=== PATIENT | male | born 1980 | race Caucasian/White ===

== ENCOUNTER 2019-12-09 01:16 | Inpatient (IN) | payer SELFPAY ==
[2019-12-09] VITALS (8 sets, daily range): BP systolic 106–146; BP diastolic 71–90; PULSE 83–108; RESP 16–24; TEMP 36.3–37.2; O2SAT 94–99; BMI 26.6
--- NOTE | 2019-12-09 01:27 | PC.NURSE ---
Officer stated that he also when getting to patient, the the patient was standing in the room naked pouring a gallon of milk all over himself. stated that there was several different types of medication around the patient, he stated that only thing he seen for sure was advil and midol, but there was stuff all around the patient and wasn't sure what other types of medications was there.
--- NOTE | 2019-12-09 01:28 | ED_ITS ---
HPI - Psych General: Chief Complaint: Psychiatric Symptoms Stated Complaint: SI Time Seen by Provider: 12/09/19 01:22 Source: patient and police Mode of arrival: other (police) Limitations: no limitations History of Present Illness: HPI Narrative: 39-year-old male who is here with police after they were called to his residence. Patient was there with his and states that he had taken ibuprofens and Midol's at 1230 and is unsure how much. Please states he was acting bizarrely and had poured milk on himself and threatened to jump out of a third story window. Patient here is refusing to answer most my questions and appears to be intoxicated. Associated symptoms: Deny depression Review of Systems Const: Denies: fever(s), chills, body aches or change in appetite Eyes: Denies: blurry vision or eye discomfort ENMT: Denies: throat pain or dental pain Card: Denies: chest pain Resp: Denies: dyspnea GI: Denies: abdominal pain, nausea, vomiting or diarrhea : Denies: dysuria Musc: Denies: neck pain or back pain Skin/Breast: Denies: rash Neuro: Denies: headache(s) Psych: Reports: mood swings; Denies: depression Govind/Lymph: Denies: easy bruising All/Imm: Denies: urticaria Physical Exam Const: COMMON NORMALS: no acute distress, patient oriented x3 and healthy appearing HENMT: COMMON NORMALS: normocephalic and atraumatic HEAD & SCALP: n ormocephalic and atraumatic Eye: COMMON NORMALS: Equal, round and reactive pupils present and EOMs intact bilaterally PUPIL: Yes Equal, round and reactive pupils present Neck/C-Spine: COMMON NORMALS: full ROM and supple Chest: COMMONS NORMALS: normal inspection of the chest and normal palpation of entire chest wall Resp: COMMON NORMALS: normal respiratory effort, No retractions, No use of accessory muscles and clear to auscultation bilaterally AUSCULTATION: clear to auscultation bilaterally Cardio: COMMON NORMALS: regular rate, regular rhythm and No murmurs present (Cardio) RATE: regular rate RHYTHM: regular rhythm GI: COMMON NORMALS: Normal to inspection, nondistended, normoactive bowel sounds present, Soft to palpation, non-tender and no masses PALPATION: Yes Soft to palpation Extremity: COMMON NORMALS: normal to inspection and full ROM Neuro: COMMON NORMALS: patient oriented x3, moves all extremities and no focal motor deficits Psych: ATTITUDE: Yes bizarre MOOD & AFFECT: Yes depressed mood and Yes anxious Skin: COMMON NORMALS: no rashes or lesions noted and no wounds GENERAL SKIN EXAM: no rashes or lesions noted MDM - Psych MDM Narrative: Medical decision making narrative: 0242 I responded to the rapid response where return patient had eloped. Staff states that he got up and ran out. Police contacted at this point. 0500 patient's repeat Tylenol level here is negative. Patient's otherwise blood care is all normal and he is medically cleared. Patient is on a 96-hour hold I spoke to psychiatrist and will admit to the psychiatric unit. Lab Data: Labs: Lab Results 12/09/19 12/09/19 12/09/19 Range/Units 01:30 01:30 04:17 WBC 14.9 H (4.0-10.0) 10^3/ uL RBC 5.50 H (4.1-5.3) 10^6/u L Hgb 15.8 (11.7-16.6) g/dL Hct 49.1 (42.0-52.0) % MCV 89.3 (80-94) fL MCH 28.7 (28.0-34.0) pg MCHC 32.2 (30.0-36.0) g/dL RDW 12.4 (12.1-15.1) % Plt Count 385 (130-400) 10^3/c mm MPV 9.8 (7.4-10.4) fL Neut % (Auto) 70.6 % Lymph % (Auto) 18.5 % [place] % (Auto) 9.4 % Eos % (Auto) 0.7 % Baso % (Auto) 0.5 % Neut # (Auto) 10.53 H (1.8-7.7) 10^3/u L Lymph # (Auto) 2.8 (0.8-4.8) 10^3/u L [place] # (Auto) 1.4 H (0.2-0.9) 10^3/u L Eos # (Auto) 0.1 (0.0-0.8) 10^3/u L Baso # (Auto) 0.1 (0.0-0.1) 10^3/u L Nucleated RBC % (a uto) 0 % Nucleated RBCs # 0.0 /100WBC Sodium 144 (136-145) mmol/L Potassium 4.4 (3.5-5.1) mmol/L Chloride 104 (98-107) mmol/L Carbon Dioxide 27 (22-29) mmol/L Anion Gap 17.4 (5-19) BUN 17 (6-20) mg/dL Creatinine 1.1 (0.7-1.2) mg/dL GFR Calculation 73.8 L (90-130) mL/min Glucose 108 (65-115) mg/dL Calculated Osmolal ity 295 (285-295) mOsm/k g Calcium 9.6 (8.5-10.5) mg/dL Total Bilirubin 0.5 (0.15-1.2) mg/dL AST 32 (0-40) U/L ALT 22 (0-41) U/L Alkaline Phosphata se 73 (40-130) IU/L Total Protein 8.2 (6.6-8.7) g/dL Albumin 4.9 (3.5-5.2) g/dL Globulin 3.3 (1.3-4.6) g/dL Salicylates < 0.3 L (3-10) mg/dL Acetaminophen < 5.0 L < 5.0 L (10-30) ug/mL Ethyl Alcohol < 10 (0-10) mg/dL Discharge Plan Discharge Patient Disposition: Admitted As Inpatient Clinical Impression: Depression Qualifiers: Depression Type: unspecified Qualified Code(s): F32.9 - Major depressive diso rder, single episode, unspecified Condition: Stable Coding Level of Care Code ED Global Project Manager for g Fwd Exam Comprehensive
[2019-12-09 01:37] LABS: Basophils # 0.1 10^3/uL (0.0-0.1); Basophils % 0.5 %; Eosinophils # 0.1 10^3/uL (0.0-0.8); Eosinophils % 0.7 %; Hematocrit 49.1 % (42.0-52.0); Hemoglobin 15.8 g/dL (11.7-16.6); Lymphocytes # 2.8 10^3/uL (0.8-4.8); Lymphocytes % 18.5 %; Mean Corpuscular HGB Conc 32.2 g/dL (30.0-36.0); Mean Corpuscular Hemoglobin 28.7 pg (28.0-34.0); Mean Corpuscular Volume 89.3 fL (80-94); Mean Platelet Volume 9.8 fL (7.4-10.4); Monocytes # 1.4 10^3/uL (0.2-0.9); Monocytes % 9.4 %; Neutrophils # 10.53 10^3/uL (1.8-7.7); Neutrophils % 70.6 %; Nucleated Red Blood Cells % 0 %; Platelet Count 385 10^3/cmm (130-400); Red Cell Distribution Width 12.4 % (12.1-15.1); White Blood Count 14.9 10^3/uL (4.0-10.0)
--- NOTE | 2019-12-09 01:45 | PC.NURSE ---
PT DENIES ANY THOUGHTS OF SUICIDE TO THIS NURSE BUT HAS FLIGHT OF IDEAS. REPORTED BY PD THAT WHEN THEY ARRIVED PT WAS SITTING IN A WINDOW THREATENING TO JUMP. PT ALSO THEN TOOK 1 GALLON OF MILK AND WAS POURING IT OVER HIS BODY WHEN THE PD CAME INTO HIS HOUSE. PT CONT TO SAY DOSE NOT WANT TO HARM HIMSELF, BUT HE ALSO TOOK AN UNDETERMINED NUMBER OF MEDICATIONS PRIOR TO PD ARRIVING AT HOUSE.
[2019-12-09 02:04] LABS: Alanine Aminotransferase 22 U/L (0-41); Albumin Level 4.9 g/dL (3.5-5.2); Alkaline Phosphatase 73 IU/L (40-130); Anion Gap 17.4 (5-19); Aspartate Amino Transferase 32 U/L (0-40); Blood Urea Nitrogen 17 mg/dL (6-20); Calcium 9.6 mg/dL (8.5-10.5); Carbon Dioxide 27 mmol/L (22-29); Chloride 104 mmol/L (98-107); Globulin 3.3 g/dL (1.3-4.6); Glomerular Filtration Rate 73.8 mL/min (90-130); Glucose 108 mg/dL (65-115); Osmolality Calculated 295 mOsm/kg (285-295); Potassium 4.4 mmol/L (3.5-5.1); Sodium 144 mmol/L (136-145); Total Bilirubin 0.5 mg/dL (0.15-1.2); Total Protein 8.2 g/dL (6.6-8.7)
[2019-12-09 02:34] LABS: Acetaminophen < 5.0 ug/mL (10-30); Alcohol Level < 10 mg/dL (0-10); Salicylate < 0.3 mg/dL (3-10)
--- NOTE | 2019-12-09 02:41 | PC.NURSE ---
PT CAME OUT TO NURSES STATION AND WANTED TO LEAVE. PT WAS TOLD THAT HE COULD NOT LEAVE. PT WAS OFFERED FOOD AND WATER. PT REFUSED AT THIS TIME AND INSISTED THAT HE WAS LEAVING. PT TOOK OFF RUNNING THROUGH THE DOORS AND OUT OF THE HOSPITAL. PT WAS FOLLOWED OUT OF THE HOSPITAL BY TWO RN'S. PT WAS SEEN LEAVING THE HOSPITAL GROUNDS AND PD WAS NOTIFIED. PT WAS INITAL ADDRESSED BY TWO RN'S AND ENCOURAGED TO GO BACK INTO ROOM.
--- NOTE | 2019-12-09 02:54 | PC.NURSE ---
PT BROUGHT BACK TO ED BY PD. PT TAKEN TO ROOM. PD AT BEDSIDE.
[2019-12-09] MEDS: LORazepam 2 mg/mL INJ 1 mL IM (03:01)
[2019-12-09] MEDS: haloperidol inj 5 mg/mL INJ 1 mL IM (03:01)
[2019-12-09 04:51] LABS: Acetaminophen < 5.0 ug/mL (10-30)
--- NOTE | 2019-12-09 14:43 | P.HP_ITS ---
Providers/Chief Complaint Admitting Physician: Jason Bautista MD Chief Complaint: SI HPI NPU History of Present Illness Bob Yin is a 39 year old male who presented to the emergency room with first responders secondary to strange behavior at his house which involved him apparently being by window pouring milk on himself and some talk about jumping out the window. He was uncooperative in the emergency room and had to have a when necessary injection. He was admitted to the neuropsychiatric unit for definitive treatment of these issues. Today he presents reporting that he wants to go home and giving no clear indication of what had gone on at that window. He was in denial that he had any problems but then later said that sometimes his mind plays tricks on him. He Focusing on the discharging him and straying from the episode that occurred. He endorsed the possibility of benefiting from Haldol at night. Given that it helped him sleep which he said is a problem. We discussed Abilify and Haldol and the risks, benefits and alternatives to those medications and he understood and agreed to proceed with dose of Haldol at night. He denied any clear past issues like this one. Addit ionally of note, he had coughed incessantly during the interview spitting things up a couple of times. There had been a possible contact case in his community of Covid?19 so hospitalist consult was initiated to make sure that he was not a carrier as he was not displaying any fever or reporting other signs. Psychiatric history: Denied. Substance abuse history: He denies any significant cigarette, alcohol, marijuana or any other illicit drug use. Denies any history of drug rehabilitation or DUIs. Family history: He endorsed that his mom's side of the family might have some mental health issues. Endorsed that possibly his father side of the family had some addiction issues. He denied any suicide attempts or completions. Developmental history: He denied any issues with his mom's or delivery of him. He learned to walk and talk and met his developmental milestones on time. He reported that he did not have speech therapy, learning support muscles or respiratory education classes, but reported that due to the war in his country he was not really able to go to school. He then reported that when he came to [place], he ended up being put in the ninth grade. Developmental history: He reports his mother father were together when he was born. He reports that possibly his mother had Rh factor or something of that nature cause due to mismatch of his blood type in her blood type she was not able to have any other children for the most part until he had his sister Omayra who is his only sibling. He denies any emotional physical or sexual abuse in his childhood w hich she reported was rough secondary to the war but he does report some war atrocities but did not seem to want to talk about nightmares or anything like that. He went to the 11th grade in high school and dropped out. He did not get his GED but it appears that may have had more to do with language barrier than intelligence. He endorses being a heterosexual and is been to the same woman for almost 23 years. It is only marriage and he has 10 children 6 boys and 4 girls with one of his children the oldest boy having moved out and got the rest reportedly live in the home. He has never been in the , he endorses being a [employer]. 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 He lives in a house with his and 9 children. Legal history: He endorses being in prison multiple times along its time being 120 day shock sent ence. Medical history: Denied. Meds NPU Home Medications Medication Instructions Recorded Confirmed Last Taken Type No Known Home Medications 12/10/19 12/10/19 Unknown History Allergies Allergy/AdvReac Type Severity Reaction Status Date / Time No Known Allergies Allergy Verified 12/09/19 01:24 [facility] NPU PFSH: Medical History (Updated 12/10/19 @ 20:34 by Jason Bautista MD) GERD (gastroesophageal reflux disease) Surgical History (Updated 12/09/19 @ 16:09 by Trevor Kaye MD) H/O inguinal hernia repair Social History (Updated 12/09/19 @ 16:11 by Trevor Kaye MD) Smoking and tobacco status: never smoked Alcohol intake: never Substance/Drug Use: never Mental Status Exam MSE Comments: this is a well-nourished well-developed white male with adequate dress, grooming and eye contact. No abnormal movements except for mild psychomotor retardation; cooperative with exam in no acute distress. Speech was limited with significant/strong Ivorian accent in decreased rate and volume. Mood described as okay at that guarded. Thought process mostly organized. Thought content: Patient denies suicidal or homicidal ideation, but smirked when asked about what happened at the window with the milk, there were no delusions reported or noted, he denied any auditory or visual hallucinations. Attention and concentration were limited and memory is unreliable but none were formally tested. He is alert and oriented times person and place. Insight and judgment are impaired impulse control is impaired. Vitals/I&O/Wt Last Vital Signs Temp 97.6 F 12/09/19 05:52 Pulse 83 12/09/19 05:52 Resp 20 H 12/09/19 05:52 BP 106/71 12/09/19 05:52 Pulse Ox 99 12/09/19 05:52 Weight last 48 hrs Weight 86.455 kg Weight 81.647 kg Data NPU : 12/09/19 01:30 12/09/19 01:30 A&P Assessment and plan (1) Altered mental status: Status: Acute (2) Psychosis: Status: Acute (3) Depression: Status: Acute Qualifiers: Depression Type: unspecified Qualified Code(s): F32.9 - Major depressive disorder, single episode, unspecified (4) Suicidal behavior: Status: Acute Additional A&P Information This is a 39-year-old white male with no reported psychiatric history who presents after some bizarre behavior and reported suicidal threat with some mild language barrier reporting an openness to consider medication presenting on a 96 hour hold. 1. Continue current medication. Except: Start Haldol 5 mg by mouth daily at bedtime. 2. Encouraged individual, group and milieu therapy. 3. Continue every 15 minute checks for safety however he will need to be one-on-one and in isolation while the covid-19 evaluation is being done. 4. Will await response of hospitalist consult has already been done. 5. Limited toxicology report will await conversation with to get some collateral information on what may have led up to the situation. Involuntary Hold Information 96 Hour Hold: 96 Hour Involuntary Admission: Yes 96 Hour Hold Ending Date: 12/15/19 96 Hour Hold Ending Time: 12:01 Attestations NPU Medical Necessity Statement*: Inpatient hospitalization is medically necessary and the clinically appropriate intervention at this time. We will monitor medications and make changes as indicated. He will be in the hospital for over to minimize. We'll evaluate for safety for discharge given 96 hour hold. Likely length of stay 3-5 days. 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
--- NOTE | 2019-12-09 15:03 | XRR_ITS ---
PROCEDURE INFORMATION: Exam: XR Chest, 1 View Exam date and time: 12/09/2019 3:05 PM Age: 39 years old Clinical indication: Cough TECHNIQUE: Imaging protocol: XR of the chest Views: 1 view. COMPARISON: CR Chest 2 views* [id number] 12/26/2012 1:19 PM FINDINGS: Lungs: Unremarkable. No consolidation. Pleural space: Unremarkable. No pleural effusion. No pneumothorax. Heart/Mediastinum: Unremarkable. No cardiomegaly. Bones/joints: Unremarkable. Similar findings seen comparing to prior examination XR/XR chest 1V portable [id number] IMPRESSION: No acute findings.
[2019-12-09 15:30] LABS: SARS Covid-2 Antigen Negative (Negative)
--- NOTE | 2019-12-09 15:58 | PM.CONSULT ---
Providers/Reason For Consult Consulting Physican/Specialty*: Dr. Bautista, psychiatry service Reason for Consult*: Nausea vomiting and cough. Attending Physician: Jason Bautista MD History of Present Illness History of Present Illness Bob Yin is a 39 year old male was admitted yesterday with altered mental status. Apparently he took ibuprofen and Midol and was acting bizarre. He was brought to ER but then eloped and was brought back by police several hours later. Patient was placed on 96-hour hold and admitted to neuropsychiatric unit. He noted to vomit this morning as well as coughing and hospitalist team was consulted for further evaluation and treatment. During my evaluation this afternoon patient appears to be slightly confused and reports some mild posterior headache. He shows no meningeal signs. He reports that he has been working yesterday on his car outside. He denies any fever or chills he denies any specific complaints other than mentioned. Reports that his nausea and vomiting with breakfast only was going on for 15 years. Reports that he previously was prescribed different antireflux medications and recently ran out of Trainfox. He denies taking any analgesics although per 's report yesterday he did take ibuprofen and Midol. He denies taking any medications as he does not believe in them. When we discussed about further evaluation with EGD and lumbar puncture for CSF evaluation he refused. Reports that he got very mad yesterday as he tripped on the bicycle his kids left on the floor. He has 10 children and lives with his Maura. He denies using any illicit drugs or smoking. He denies drinking alcohol. He reports that Sikh men believing in God would never do it. He goes to taoism regularly with his family. I would like to mention that we have communicated in Ecuadorean language as patient does not speak Taiwanese well. I have tried calling patient's to obtain more information but phone number provided in records is not in service. Review of Systems Const: Denies: fever(s) or chills Eyes: Denies: change in vision ENMT: Denies: throat pain or change in hearing Card: Denies: chest pain, edema or lightheadedness Resp: Denies: dyspnea or productive cough GI: Reports: nausea, vomiting, heartburn and belching; Denies: abdominal pain, dysphagia, diarrhea, constipation, hematochezia or melena Musc: Denies: joint pain or joint swelling Skin/Breast: Denies: rash or erythema Neuro: Denies: headache(s) or weakness in extremities Psych: Denies: depression or suicidal ideation Endo: Denies: excessive sweating Govind/Lymph: Denies: easy bleeding or tender lymph nodes All/Imm: Denies: throat swelling Meds/Allergies Home Medications and Allergies Allergies Allergy/AdvReac Type Severity Reaction Status Date / Time No Known Allergies Allergy Verified 12/09/19 01:24 PFSH Acute PFSH: Medical History (Updated 12/09/19 @ 16:21 by Trevor Kaye MD) GERD (gastroesophageal reflux disease) Surgical History (Updated 12/09/19 @ 16:09 by Trevor Kaye MD) H/O inguinal hernia repair Social History (Updated 12/09/19 @ 16:11 by Trevor Kaye MD) Smoking and tobacco status: never smoked Alcohol intake: never Substance/Drug Use: never Vitals/I&O/Wt Last Vital Signs Temp 97.6 F 12/09/19 05:52 Pulse 83 12/09/19 05:52 Resp 24 H 12/09/19 06:00 BP 106/71 12/09/19 05:52 Pulse Ox 99 12/09/19 05:52 Weight last 48 hrs Weight 81.647 kg Physical Exam Const: COMMON NORMALS: no acute distress, patient oriented x3 and alert HENMT: COMMON NORMALS: normocephalic and atraumatic HEAD & SCALP: normocephalic and atraumatic Eye: COMMON NORMALS: EOMs intact bilaterally, conjunctivae normal and no scleral icterus CONJUNCTIVA: Yes conjunctivae normal Neck/C-Spine: COMMON NORMALS: no lymphadenopathy and no meningeal signs Lymph: LYMPHATIC: no lymphadenopathy noted Chest: COMMONS NORMALS: normal palpation of entire chest wall Resp: COMMON NORMALS: No use of accessory muscles and clear to auscultation bilaterally AUSCULTATION: clear to auscultation bilaterally Cardio: COMMON NORMALS: regular rate, regular rhythm and No murmurs present (Cardio) RATE: regular rate RHYTHM: regular rhythm OTHER: No lower extremity edema GI: COMMON NORMALS: Soft to palpation and non-tender PALPATION: Yes Soft to palpation RECTAL EXAM: Yes deferred : COMMON NORMALS: Yes no CVA tenderness BLADDER/KIDNEY EXAM: Yes no CVA tenderness Back/Pelvis: COMMON NORMALS: no CVA tenderness and thoracic and lumbar spine normal to inspection Extremity: COMMON NORMALS: normal to inspection and capillary refill normal Neuro: COMMON NORMALS: patient oriented x3 and no focal motor deficits SENSORIUM/ORIENTATION: Yes alert MENINGEAL SIGNS: Yes no meningeal signs Psych: COMMON NORMALS: mental status grossly normal (Initially acted somewhat bizarre but more we talked better he got.), cooperative, denies homicidal ideation and denies suicidal ideation Skin: COMMON NORMALS: no rashes or lesions noted GENERAL SKIN EXAM: no rashes or lesions noted A&P Assessment and plan (1) Altered mental status: Highly suspected to be heat exhaustion versus illicit drug use. Status: Acute (2) GERD (gastroesophageal reflux disease): With suspected NSAID induced gastritis as cause of patient's nausea and vomiting Status: Acute (3) Depression: Status: Acute Qualifiers: Depression Type: unspecified Qualified Code(s): F32.9 - Major depressive disorder, single episode, unspecified (4) Dehydration: Status: Acute (5) Headache: Meningitis felt unlikely although aseptic meningitis second to ibuprofen is still a possibility. Bacterial infection felt highly unlikely. Patient refuses CSF analysis. Status: Acute Additional A&P Information Patient is [facility] that recently had severely ill patient with COVID-19 positive therefore patient had COVID-19 checked which was negative. His chest x-ray without any acute cardiopulmonary findings per my interpretation. Currently waiting for official report. Discussed with Dr. Bautista and we will give patient 1 L of half-normal saline. I encouraged patient to eat and drink fluids. We will try to contact patient's to discuss. Start patient on high-dose Protonix and avoid any NSAIDs. Awaiting urine drug screen. Consult Attestations Medical Necessity Statement: Patient with altered mental status requires close inpatient monitoring and treatment. I expect patient will require less than two midnights. Time Spent in Patient Care: Greater than 35 minutes (>than 50% of time spent in counselling and/or direct pt care on unit). 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
--- NOTE | 2019-12-09 21:03 | PC.NURSE ---
PT REFUSED SCHEDULED HALDOL. PT STATES HE DOES NOT BELIEVE IN MEDICATIONS AND WILL NOT BE TAKING THEM.
[2019-12-10 06:00] VITALS: BP 136/88; PULSE 86; RESP 20; TEMP 37.2; O2SAT 96
[2019-12-10] MEDS: pantoprazole DR 40 mg Tablet PO ×2 (07:43→18:08)
[2019-12-10] MEDS: nicotine 2 mg Gum BUCCAL ×6 (07:43→19:23)
[2019-12-10] MEDS: acetaminophen 325 mg Tablet 650 MG PO ×2 (07:44→12:32)
--- NOTE | 2019-12-10 13:47 | P.PN_ITS ---
Subjective Subjective: Interval history: Patient continues to be somewhat bizarre but overall better than yesterday. Refused having any more blood work. Reports good oral intake and appetite. He knows where he is and wants to go home. We were unable to get urine drug screen. mentioned that the patient was depressed. Primary psychiatric condition cannot be ruled out. Patient denies h eadache this afternoon. Denies shortness of breath or chest pain. Denies abdominal pain. Vitals/I&O/Wt Last Vital Signs Temp 98.9 F 12/10/19 06:00 Pulse 86 12/10/19 06:00 Resp 20 H 12/10/19 06:00 BP 136/88 12/10/19 06:00 Pulse Ox 96 12/10/19 06:00 Weight last 48 hrs Weight 86.455 kg Weight 81.647 kg Physical Exam Const: COMMON NORMALS: no acute distress and patient oriented x3 Resp: COMMON NORMALS: normal respiratory effort and clear to auscultation bilaterally AUSCULTATION: clear to auscultation bilaterally Cardio: COMMON NORMALS: regular rate, regular rhythm and S2 normal heart sound present RATE: regular rate RHYTHM: regular rhythm HEART SOUNDS: S2 normal heart sound present OTHER: No lower extremity edema GI: COMMON NORMALS: Normal to inspection, nondistended, normoactive bowel sounds present, Soft to palpation and non-tender PALPATION: Yes Soft to palpation Neuro: COMMON NORMALS: patient oriented x3 and no focal motor deficits Data : 12/09/19 01:30 12/09/19 01:30 A&P Assessment and plan (1) Altered mental status: Highly suspected to be heat exhaustion versus illicit drug use. Status: Acute (2) GERD (gastroesophageal reflux disease): With suspected NSAID induced gastritis as cause of patient's nausea and vomiting Status: Acute (3) Depression: Status: Acute Qualifiers: Depression Type: unspecified Qualified Code(s): F32.9 - Major depressive disorder, single episode, unspecified (4) Dehydration: Status: Acute (5) Headache: Meningitis felt unlikely although aseptic meningitis second to ibuprofen is still a possibility. Bacterial infection felt highly unlikely. Patient refuses CSF analysis. Status: Acute Additional A&P Information Encouraged oral intake. Psychiatric management as per Dr. Bautista. 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
[2019-12-10 14:00] VITALS: BP 130/85; PULSE 84; RESP 20; TEMP 36.8; O2SAT 96
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
[2019-12-10] MEDS: haloperidol 5 mg Tablet PO (20:15)
[2019-12-10] MEDS: trazodone 50 mg Tablet PO (20:15)
[2019-12-10] MEDS: hyDROXYzine 25 mg Capsule 50 MG PO (20:16)
--- NOTE | 2019-12-10 20:51 | PC.NURSE ---
pt given scheduled haldol and PRN nicorette, trazodone and vistaril per request.
[2019-12-10 21:58] VITALS: BP 131/91; PULSE 101; RESP 19; TEMP 36.7; O2SAT 97
[2019-12-11 06:00] VITALS: BP 141/80; PULSE 81; RESP 16; TEMP 36.8; O2SAT 98
[2019-12-11] MEDS: nicotine 2 mg Gum BUCCAL (07:31)
[2019-12-11] MEDS: pantoprazole DR 40 mg Tablet PO (09:02)
[2019-12-11 12:47] VITALS: BP 124/79; PULSE 86; RESP 20; TEMP 36.4; O2SAT 97
--- NOTE | 2019-12-11 13:31 | P.DS_ITS ---
Diagnoses at Discharge Discharge Diagnosis (1) Altered mental status: Status: Resolved (2) Psychosis: Status: Ruled-out (3) Depression: Status: Suspected Qualifiers: Depression Type: unspecified Qualified Code(s): F32.9 - Major depressive disorder, single episode, unspecified (4) Suicidal behavior: Status: Ruled-out Reason for Visit Reason for Visit: SI Brief History: ER Physician note: 39-year-old male who is here with police after they were called to his residence. Patient was there with his and states that he had taken ibuprofens and Midol's at 1230 and is unsure how much. Please states he was acting bizarrely and had poured milk on himself and threatened to jump out of a third story window. Patient here is refusing to answer most my questions and appears to be intoxicated. HPI: Bob Yin is a 39 year old male who presented to the emergency room with first responders secondary to strange behavior at his house which involved him apparently being by window pouring milk on himself and some talk about jumping out the window. He was uncooperative in the emergency room and had to have a when necessary injection. He was admitted to the neuropsychiatric unit for definitive treatment of these issues. Today he presents reporting that he wants to go home and giving no clear indication of what had gone on at that window. He was in denial that he had any problems but then later said that sometimes his mind plays tricks on him. He Focusing on the discharging him and straying from the episode that occurred. He endorsed the possibility of benefiting from Haldol at night. Given that it helped him sleep which he said is a problem. We discussed Abilify and Haldol and the risks, benefits and alternatives to those medications and he understood and agreed to proceed with dose of Haldol at night. He denied any clear past issues like this one. Additionally of note, he had coughed incessantly during the interview spitting things up a couple of times. There had been a possible contact case in his community of Covid?19 so hospitalist consult was initiated to make sure that he was not a carrier as he was not displaying any fever or reporting other signs. Hospital Course Hospital Course The patient was admitted to the adult psychiatric unit for observation. He was entered into the full array of individual and group psychotherapies as part of the adult psychiatric unit protocol. He was provided supervision of by trained psychiatric nursing personnel on a 24-hour basis. He was cooperative with interviews. It was noted that no urine drug screen was performed at the time of admission. He refused further blood draws. However at no time did he display signs or symptoms of psychosis. He was despondent at times but at no time was felt to be an imminent risk to self or others. Information he provided was internally consistent. He could not explain the report that he had poured milk on himself. It is unclear where that story originated. He said that he was sitting in the second floor of the house. In fact he called police. Following 3 days of hospitalization, he was reporting frustration that he was being maintained here against his well and he needed to get back to work. He denied the presence of auditory or visual hallucinations at any time. He denied any history of psychiatric or mental health care. He denied suicidal or homicidal ideation. Discharge Summary At the time of discharge there is no indication of imminent risk to self or others. Involuntary Hold Information 96 Hour Hold: 96 Hour Involuntary Admission: Yes 96 Hour Hold Ending Date: 12/15/19 96 Hour Hold Ending Time: 12:01 Mental Status Exam MSE Comments: Discharge Mental Status Exam: Appearance: hygiene is good; no gross neurological deficits., gait is unremarkable; AIMS=0 Speech: Speech is of normal rate and rhythm and easily understood. Thought processes: Thought processes are abstract. Judgment is adequate for safety. Associations: intact Psychotic processes: There is no indication of guarding or paranoia. There is no attention to the internal stimuli. Auditory and visual hallucinations are denied. Judgment: Insight is fair. Problem solving skills are adequate for safety. Orientation: The patient is oriented to person, place time and situation. Memory: no deficits noted in immediate, intermediate, or remote spheres. Attention: The patient is alert and interpersonally engaged. Language: Verbalizations are coherent. Fund of knowledge: Fund of knowledge is adequate. Affect/Mood: Affect is sad with a euthymic mood. denied suicidal ideation Affective range is good with good sense of humor Psychosis: perception unimpaired except through cognitive distortion; reality testing intact. Discharge Data Data Completed and Pending: Completed Studies During Hospitalization Category Date Time Status XR chest 1V wade ble [id number] Routine Exams 12/09/19 15:03 Completed Pending at discharge Category Date Time Status Complete Blood Co unt w/Auto Stat Lab 12/10/19 10:23 Ordered Comprehensive Met abolic Panel Stat Lab 12/10/19 10:23 Ordered Drug Screen, Urin e Stat Lab 12/09/19 01:22 Ordered Magnesium Stat Lab 12/10/19 10:23 Ordered Vitals: Last Vital Signs Temp 97.6 F 12/11/19 12:47 Pulse 86 12/11/19 12:47 Resp 20 H 12/11/19 12:47 BP 124/79 12/11/19 12:47 Pulse Ox 97 12/11/19 12:47 Discharge Plan Discharge Patient Disposition: Home Condition: Stable Prescriptions: New pantoprazole 40 mg Tablet,Delayed Release (Dr/Ec) 40 mg PO BID Qty: 60 RF: 2 No Action No Known Home Medications RF: 0 Discharge Orders: Discharge Order (Routine); Ordered 12/11/19 Ordered By: Baldo Rodriguez Discharge Attestations NPU Time Spent in Discharge Care*: greater than 30 min Coding Level of Care Code Acute Cork Mixer for g Fwd Diagnoses Altered mental status R41.82 Psychosis F29 Depression F32.9 Depression Type: unspecified Suicidal behavior R45.89
[2019-12-11 13:52] VITALS: BP 124/79; PULSE 86; RESP 20; TEMP 36.4; O2SAT 97
== END 2019-12-11 14:10 | disposition home or self-care (01) | DRG 881 ==
LOC: ER 03:59 → NP 05:16
PROVIDERS: Emergency Medicine; Internal Medicine; Admitting Provider Psychiatry & Neurology Psychiatry; Visit Provider Psychiatry & Neurology Psychiatry
DX: F32.9 Major depressive disorder, single episode, unspecified (principal); K21.9 Gastro-esophageal reflux disease without esophagitis; E86.0 Dehydration; Z20.828 Contact with and (suspected) exposure to other viral communicable diseases; Z91.14 Patient's other noncompliance with medication regimen
CPT/HCPCS: 12345; 71045; 80053; 80307; 85025; 87426; 96372; 99284; J1630; J2060

== ENCOUNTER 2020-04-30 11:37 | Inpatient (IN) | payer SELFPAY ==
--- NOTE | 2020-04-30 11:38 | ECG_ITS ---
[facility] Test Date: 2020-04-30 Pat Name: Bob Yin Department: Room: Gender: Male Prior Authorization Nurse: : 1980 Requested By: Romy Ordoñez Order Number: [id number] Tyler MD: Trevor Perkins M.D. Measurements Intervals [place] Rate: 92 P: 32 KS: 120 QRS: 53 QRSD: 103 T: 44 QT: 363 QTc: 450 Interpretive Statements SINUS RHYTHM No previous ECG available for comparison Electronically Signed On 04-30-2020 18:35:16 RN TELEMETRY by Trevor Perkins M.D. [email or web address]
[2020-04-30] MEDS: LORazepam 2 mg/mL INJ 1 mL IM (11:44)
[2020-04-30] MEDS: haloperidol inj 5 mg/mL INJ 1 mL IM (11:44)
[2020-04-30 11:54] VITALS: BP 127/92; PULSE 106; RESP 22; O2SAT 94; BMI 28.0
--- NOTE | 2020-04-30 12:03 | PC.NURSE ---
Unable to assess level of orientation at this time due to patient uncooperation. Pt will only yell out in another language assumed to be palauan. Pt is known to speak fluent chadian but has not answered questions or spoke to staff in chadian. Will continue to monitor and reassess
--- NOTE | 2020-04-30 12:06 | W.ED.AMS ---
HPI - Altered Mental Status General: Chief Complaint: Altered Mental Status Stated Complaint: OUTBURSTS/PSYCHOTIC Time Seen by Provider: 04/30/20 11:38 Source: EMS and police Mode of arrival: EMS Limitations: language barrier and altered mental status History of Present Illness: HPI narrative: Bob is a 39-year-old male who was apparently found outside of a local grocery store sleeping on a bench. When approached the patient began to act bizarre and agitated. Police were called and he had to be handcuffed and restrained to bring here to the emergency department. Patient has a history of methamphetamine abuse according to police who know him. Patient here is acting acutely psychotic and is only speaking Bangladeshi and will not cooperate to speak Czech. It is believed he can speak some Czech. He will not answer any questions but continually just tries to spit, bite and lash out at people. For his safety and ours he was immediately placed in a restraint bed and we are giving him chemical sedation. We are trying to contact his so that she might come up and try to interpret for us. Review of Systems General: Reports: ROS unobtainable due to medical condition and ROS unobtainable due to mental status [facility] ED PFSH: Medical History Depression GERD (gastroesophageal reflux disease) Surgical History H/O inguinal hernia repair Social History Smoking and tobacco status: never smoked Alcohol intake: never Physical Exam Const: COMMON NORMALS: alert GENERAL APPEARANCE: disheveled and other (Agitated and combative) HENMT: COMMON NORMALS: normocephalic, atraumatic, external ears normal and Normal external nose present HEAD & SCALP: normocephalic and atraumatic FACE & SINUS: normal facial exam NOSE: Normal external nose present and Normal nares present EXTERNAL EAR: Yes external ears normal MOUTH: Normal oral and palatal mucosa present, lip normal and tongue normal Eye: COMMON NORMALS: Equal, round and reactive pupils present, EOMs intact bilaterally, conjunctivae normal and no scleral icterus CONJUNCTIVA: Yes conjunctivae normal PUPIL: Yes Equal, round and reactive pupils present Neck/C-Spine: COMMON NORMALS: full ROM, no lymphadenopathy, supple and no meningeal signs Resp: COMMON NORMALS: No retractions, No use of accessory muscles and clear to auscultation bilaterally AUSCULTATION: clear to auscultation bilaterally Cardio: COMMON NORMALS: regular rhythm, S1 normal heart sound present and S2 normal heart sound present RATE: tachycardic RHYTHM: regular rhythm HEART SOUNDS: S1 normal heart sound present, S2 normal heart sound present, no click, no gallops, no murmurs and no rubs GI: COMMON NORMALS: Soft to palpation, non-tender, No hepatosplenomegaly present and no masses PALPATION: Yes Soft to palpation and Yes No hepatosplenomegaly present Extremity: COMMON NORMALS: normal to inspection, no joint enlargement and no clubbing, cyanosis or edema Neuro: PANKAJ COMA SCALE: document GCS findings [place] coma scale eye opening: Spontaneous [place] coma scale verbal response: Confused Pankaj coma scale motor response: Localising [place] coma scale total score: 13 SENSORIUM/ORIENTATION: Yes alert MENINGEAL SIGNS: Yes no meningeal signs CRANIAL NERVES: Yes CN normal except as noted Psych: APPEARANCE: Yes unkempt ATTITUDE: Yes uncooperative, Yes Belligerent attititude/behavior present, Yes agitated and Yes aggressive ACTIVITY/MOTOR BEHAVIOR: Yes hyperactivity and Yes restless SPEECH: Yes Pressured speech present MOOD & AFFECT: Yes hostile affect Skin: COMMON NORMALS: no rashes or lesions noted, no wounds, turgor normal, no jaundice and no petechiae GENERAL SKIN EXAM: no rashes or lesions noted and turgor normal Course ED course: 1228 -patient still agitated and combative at times. He is not proved himself safe to come out of restraints at this time. Going to add another milligram of Ativan IV. His is present he does not provide much of any further history. She states he is basically speaking gibberish at this time. She states he likely has been using meth recently. Vital Signs: Vital signs: Vital Signs Pulse Rate 106 H 04/30/20 11:54 Respiratory Rate 22 H 04/30/20 11:54 Blood Pressure 127/92 04/30/20 11:54 Pulse Oximetry 94 04/30/20 11:54 MDM - Altered Mental Status MDM Narrative: Medical decision making narrative: The case was reviewed with Dr. Bautista, he agrees admit the patient for acute psychosis, likely methamphetamine induced. Patient occasionally will speak Czech and denies any injuries, complaints of pain or any other complaints. EKG Data^: EKG 1: Attestation: I personally reviewed and interpreted this EKG as follows: EKG interpretation date: 04/30/20 EKG interpretation time: 12:28 Interpretation: Normal sinus rhythm at 92 beats a minute, no blocks, normal intervals, no acute ST-T wave changes. Discharge Plan Discharge Patient Disposition: Admitted As Inpatient Clinical Impression: Acute psychosis Condition: Stable Prescriptions: No Action Unable to Assess RF: 0 Coding Level of Care Code ED Personal Financial Representative for Chg Fwd Exam Comprehensive
--- NOTE | 2020-04-30 12:28 | XRR_ITS ---
PROCEDURE INFORMATION: Exam: XR Chest, 1 View Exam date and time: 04/30/2020 12:47 PM Age: 39 years old Clinical indication: Cough TECHNIQUE: Imaging protocol: XR of the chest Views: 1 view. COMPARISON: CR XR chest 1V portable [id number] 12/09/2019 3:51 PM FINDINGS: Lungs: Unremarkable. No consolidation. Pleural space: Unremarkable. No pleural effusion. No pneumothorax. Heart/Mediastinum: Unremarkable. No cardiomegaly. Bones/joints: Unremarkable. XR/XR chest 1V portable [id number] IMPRESSION: No acute findings.
[2020-04-30] MEDS: sodium chloride 0.9% 1,000 ML 999 ML IV ×2 (12:30→13:45)
[2020-04-30 12:46] LABS: Amphetamines Screen Urine Positive (Negative); Barbiturates Screen Urine Negative (Negative); Benzodiazepines Screen Urine Negative (Negative); Cocaine Screen Urine Negative (Negative); Opiate Screen Urine Negative (Negative); PCP Screen Urine Negative (Negative); THC Screen Urine Positive (Negative)
[2020-04-30 12:48] VITALS: BP 105/71
[2020-04-30 12:52] LABS: Basophils # 0.1 10^3/uL (0.0-0.1); Basophils % 0.6 %; Eosinophils # 0.3 10^3/uL (0.0-0.8); Eosinophils % 2.4 %; Hematocrit 45.5 % (42.0-52.0); Hemoglobin 15.3 g/dL (11.7-16.6); Lymphocytes # 3.2 10^3/uL (0.8-4.8); Lymphocytes % 30.3 %; Mean Corpuscular HGB Conc 33.6 g/dL (30.0-36.0); Mean Corpuscular Hemoglobin 28.7 pg (28.0-34.0); Mean Corpuscular Volume 85.4 fL (80-94); Mean Platelet Volume 9.7 fL (7.4-10.4); Monocytes # 1.2 10^3/uL (0.2-0.9); Monocytes % 11.5 %; Neutrophils % 54.9 %; Nucleated Red Blood Cells % 0 %; Platelet Count 354 10^3/cmm (130-400); Red Blood Count 5.33 10^6/uL (4.1-5.3); Red Cell Distribution Width 12.9 % (12.1-15.1); White Blood Count 10.4 10^3/uL (4.0-10.0)
[2020-04-30 12:58] LABS: Urine Appearance Clear (CLEAR); Urine Color Yellow (Yellow); pH Urine 5 (5-7)
[2020-04-30 12:59] LABS: Add Urine Culture? No; Add Urine Microscopic? YES; Bacteria Urine TRACE /hpf; Bilirubin Urine Neg (Negative); Blood Urine 2+ (Negative); Glucose Urine UA Norm (Normal); Ketones Urine Negative (Negative); Leukocyte Esterase Urine Negative (Negative); Nitrate Urine Negative (Negative); Protein Urine Neg (Negative); RBC Urine 0-4 /hpf (0-2); Urobilinogen Urine Norm (Negative)
--- NOTE | 2020-04-30 13:03 | PC.NURSE ---
This nurse has began the process of releasing restraints. Pt no longer exhibits violent behavior. Left leg restraint released at this time. Nurse will continue to monitor and release restraints accordingly.
[2020-04-30 13:24] LABS: Influenza A by IFA Negative (Negative); Influenza B by IFA Negative (Negative); SARS Covid-2 Antigen Negative (Negative)
[2020-04-30] MEDS: LORazepam 2 mg/mL INJ 1 mL 1 MG IVP (13:34)
[2020-04-30 13:36] LABS: INR 1.07 (0.8-1.2)
[2020-04-30 13:51] LABS: Alanine Aminotransferase 17 U/L (0-41); Albumin Level 4.3 g/dL (3.5-5.2); Alkaline Phosphatase 80 IU/L (40-130); Anion Gap 14.4 (5-19); Aspartate Amino Transferase 20 U/L (0-40); Blood Urea Nitrogen 15 mg/dL (6-20); Calcium 8.3 mg/dL (8.5-10.5); Carbon Dioxide 24 mmol/L (22-29); Chloride 102 mmol/L (98-107); Creatinine Clr Calc Pharmacy 132.1602; Globulin 2.3 g/dL (1.3-4.6); Glomerular Filtration Rate 106.5 mL/min (90-130); Glucose 90 mg/dL (65-115); Osmolality Calculated 284 mOsm/kg (285-295); Potassium 3.4 mmol/L (3.5-5.1); Sodium 137 mmol/L (136-145); Thyroid Stimulating Hormone 2.23 uIU/mL (0.27-4.20); Total Bilirubin 0.7 mg/dL (0.15-1.2); Total Protein 6.6 g/dL (6.6-8.7)
[2020-04-30 13:53] LABS: Acetaminophen < 5.0 ug/mL (10-30); Alcohol Level < 10 mg/dL (0-10); Salicylate < 0.3 mg/dL (3-10)
[2020-04-30 14:03] VITALS: BP 110/63
[2020-04-30 14:33] LABS: Magnesium 2.3 mg/dL (1.7-2.3)
[2020-04-30] MEDS: potassium chloride premix 100 ML 50 MEQ IV (14:48)
[2020-04-30] MEDS: sodium chloride 0.9% 1,000 ML 75 ML IV (14:50)
[2020-04-30 15:02] LABS: Creatine Phosphokinase 490 U/L (39-308)
[2020-04-30 15:33] VITALS: BP 86/50
[2020-04-30 22:00] VITALS: BP 82/51; PULSE 145; RESP 18; TEMP 36.8; O2SAT 94
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
[2020-05-01] MEDS: nicotine 2 mg Gum BUCCAL ×5 (03:27→20:23)
[2020-05-01 06:00] VITALS: BP 120/78; PULSE 102; RESP 18; TEMP 36.3; O2SAT 102
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
--- NOTE | 2020-05-01 11:44 | P.HP_ITS ---
Providers/Chief Complaint Admitting Physician: Jason Bautista MD Chief Complaint: OUTBURSTS/PSYCHOTIC HPI NPU History of Present Illness Bob Yin is a 39 year old male emergency department with the following report: Chief Complaint: Altered Mental Status Stated Complaint: OUTBURSTS/PSYCHOTIC Time Seen by Provider: 04/30/20 11:38 Source: EMS and police Mode of arrival: EMS Limitations: language barrier and altered mental status History of Present Illness: HPI narrative: Bob is a 39-year-old male who was apparently found outside of a local grocery store sleeping on a bench. When approached the patient began to act bizarre and agitated. Police were called and he had to be handcuffed and restrained to bring here to the emergency department. Patient has a history of methamphetamine abuse according to police who know him. Patient here is acting acutely psychotic and is only speaking Botswanan and will not cooperate to speak Mauritanian. It is believed he can speak some Mauritanian. He will not answer any questions but continually just tries to spit, bite and lash out at people. For his safety and ours he was immediately placed in a restraint bed and we are giving him chemical sedation. We are trying to contact his so that she might come up and try to interpret for us. He was admitted to the neuropsychiatric unit for definitive treatment of those issues. This communications writer happened to be in the emergency department when he presented and at that time he was screaming in Botswanan and although I do not speak Botswanan his behaviors seem to represent clear psychosis. He was very agitated and unable to be reasoned with. He presents this morning reporting that everything was okay. With some coaxing he did acknowledge his methamphetamine use and somehow tied that into behavior of his son which he said that this communications writer knows but this communications writer needed for more denied seeing him in an inpatient setting. He denied having any problem. He denied suicidal or homicidal ideation, depression anxiety or any mental health concerns. He endorsed that only he used methamphetamines, got completely out of sorts and [id number], but he feels fine now and has no interest in any kind of treatment. We discussed the risk benefits and alternatives of starting medication and he reported not feeling like he needed any medication when he is sober. He was also resistant to any inpatient or sober living services that were going to be intense. We agreed that if he was safe and well signs of credible lethality towards himself or others we would consider discharge in the morning. We reviewed his 12/09/2019 inpatient eval with this communications writer as he denies substantive changes since then. Per his 12/09/2019 [facility] inpatient eval: History of Present Illness Bob Yin is a 39 year old male who presented to the emergency room with first responders secondary to strange behavior at his house which involved him apparently being by window pouring milk on himself and some talk about j umping out the window. He was uncooperative in the emergency room and had to have a when necessary injection. He was admitted to the neuropsychiatric unit for definitive treatment of these issues. Today he presents reporting that he wants to go home and giving no clear indication of what had gone on at that window. He was in denial that he had any problems but then later said that sometimes his mind plays tricks on him. He Focusing on the discharging him and straying from the episode that occurred. He endorsed the possibility of benefiting from Haldol at night. Given that it helped him sleep which he said is a problem. We discussed Abilify and Haldol and the risks, benefits and alt ernatives to those medications and he understood and agreed to proceed with dose of Haldol at night. He denied any clear past issues like this one. Additionally of note, he had coughed incessantly during the interview spitting things up a couple of times. There had been a possible contact case in his community of Covid?19 so hospitalist consult was initiated to make sure that he was not a carrier as he was not displaying any fever or reporting other signs. Psychiatric history: Denied. Substance abuse history: He denies any significant cigarette, alcohol, marijuana or any other illicit d rug use. Denies any history of drug rehabilitation or DUIs. Family history: He endorsed that his mom's side of the family might have some mental health issues. Endorsed that possibly his father side of the family had some addiction issues. He denied any suicide attempts or completions. Developmental history: He denied any issues with his mom's or delivery of him. He learned to walk and talk and met his developmental milestones on time. He reported that he did not have speech therapy, learning support, emotional support or special education classes, but reported that due to the war in his country he was not really able to go to school. He then reported that when he came to [place], he ended up being put in the ninth grade. Developmental history: He reports his mother father were together when he was born. He reports that possibly his mother had Rh factor or something of that nature cause due to mismatch of his blood type in her blood type she was not able to have any other children for the most part until he had his sister Omayra who is his only sibling. He denies any emotional physical or sexual abuse in his childhood which she reported was rough secondary to the war but he does report some war atrocities but did not seem to want to talk about nightmares or anything like that. He went to the 11th grade in high school and dropped out. He did not get his GED but it appears that may have had more to do with language barrier than intelligence. He endorses being a heterosexual and is been to the same woman for almost 23 years. It is only marriage and he has 10 children 6 boys and 4 girls with one of his children the oldest boy having moved out and got the rest reportedly live in the home. He has never been in the , he endorses being a Jehovah'S Witness. 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 He lives in a house with his and 9 children. Legal history: He endorses being in penitentiary multiple times along its time being 120 day shock sentence. Medical history: Denied. Meds NPU Home Medications Medication Instructions Recorded Confirmed Last Taken Type Unable to Assess 04/30/20 04/30/20 Unknown History Allergies Allergy/AdvReac Type Severity Reaction Status Date / Time No Known Allergies Allergy Verified 04/30/20 12:03 [facility] NPU PFS: Medical History Depression GERD (gastroesophageal reflux disease) Surgical History H/O inguinal hernia repair Social History Smoking and tobacco status: never smoked Alcohol intake: never Mental Status Exam MSE Comments: This is an overweight white male with hospital scrubs on with appropriate grooming and eye contact. No abnormal movements. Cooperative with exam in no acute. Speech was normal rate and volume with a strong B[place]an accent. Mood described as much better, affect congruent. Thought process organized. Thought content: Patient denied any suicidal or homicidal ideation, delusions reported or noted, he denied any auditory or visual hallucinations. Attention and concentration were intact and memory appeared reliable but none were formally tested. He is alert and oriented x3. Insight and judgment were fair impulse control is impaired. Vitals/I&O/Wt Last Vital Signs Temp 98.6 F 05/01/20 12:39 Pulse 82 05/01/20 12:39 Resp 18 05/01/20 12:39 BP 106/64 05/01/20 12:39 Pulse Ox 97 05/01/20 12:39 Weight last 48 hrs Weight 86.183 kg Data NPU : 04/30/20 12:20 04/30/20 13:16 A&P Additional A&P Information (1) Altered mental status: (2) Psychosis: (3) Depression: (4) Suicidal behavior: This is a 39-year-old white male with very limited psychiatric history who presents with altered mental status stiffness which looks consistent with methamphetamine intoxication who presents now with resolution of his symptoms reporting a desire to be discharged 1. Continue current medication. We discussed medications but he is not interested at this time. 2. Encouraged individual, group and milieu therapy. 3. Continue every 15 minute checks for safety. 4. Encourage sober living treatment after discharge at the highest level of care to which he is willing to commit. 5. We will evaluate over the next 24 hours and consider discontinuing the 96- hour hold if he continues to be absent credible lethality. Involuntary Hold Information 96 Hour Hold: 96 Hour Involuntary Admission: Yes 96 Hour Hold Ending Date: 05/08/20 96 Hour Hold Ending Time: 12:15 Attestations NPU Medical Necessity Statement*: Inpatient hospitalization is medically necessary and the clinically appropriate intervention at this time. We will monitor medications and make additions and changes as indicated. He will be in the hospital for over 2 midnights. Tentative plan to discharge tomorrow continues to be absent lethality. Coding Level of Care Code Acute Forest Patrolman for Nilay Alcala
[2020-05-01 12:39] VITALS: BP 106/64; PULSE 82; RESP 18; TEMP 37; O2SAT 97
[2020-05-01 21:13] VITALS: RESP 20
[2020-05-02 06:00] VITALS: RESP 18
[2020-05-02 06:57] VITALS: BP 98/55; PULSE 84; RESP 18; TEMP 36.4; O2SAT 97
--- NOTE | 2020-05-02 09:42 | PM.NDC ---
Diagnoses at Discharge Discharge Diagnosis (1) Depression: Status: Suspected Qualifiers: Depression Type: unspecified Qualified Code(s): F32.9 - Major depressive disorder, single episode, unspecified (2) Withdrawal from methamphetamine: Status: Acute (3) Methamphetamine intoxication: Status: Acute (4) Methamphetamine abuse: Status: Acute (5) GERD (gastroesophageal reflux disease): Status: Acute Reason for Visit Reason for Visit: OUTBURSTS/PSYCHOTIC Brief History: History of Present Illness Bob Yin is a 39 year old male emergency department with the following report: Chief Complaint: Altered Mental Status Stated Complaint: OUTBURSTS/PSYCHOTIC Time Seen by Provider: 04/30/20 11:38 Source: EMS and police Mode of arrival: EMS Limitations: language barrier and altered mental status History of Present Illness: HPI narrative: Bob is a 39-year-old male who was apparently found outside of a local grocery store sleeping on a bench. When approached the patient began to act bizarre and agitated. Police were called and he had to be handcuffed and restrained to bring here to the emergency department. Patient has a history of methamphetamine abuse according to police who know him. Patient here is acting acutely psychotic and is only speaking Malagasy and will not cooperate to speak [place]ian. It is believed he can speak some Liberian. He will not answer any questions but continually just tries to spit, bite and lash out at people. For his safety and ours he was immediately placed in a restraint bed and we are giving him chemical sedation. We are trying to contact his so that she might come up and try to interpret for us. He was admitted to the neuropsychiatric unit for definitive treatment of those issues. This procedure writer happened to be in the emergency department when he presented and at that time he was screaming in Malagasy and although I do not speak Malagasy his behaviors seem to represent clear psychosis. He was very agitated and unable to be reasoned with. He presents this morning reporting that everything was okay. With some coaxing he did acknowledge his methamphetamine use and somehow tied that into behavior of his son which he said that this procedure writer knows but this procedure writer needed for more denied seeing him in an inpatient setting. He denied having any problem. He denied suicidal or homicidal ideation, depression anxiety or any mental health concerns. He endorsed that only he used methamphetamines, got completely out of sorts and [id number], but he feels fine now and has no interest in any kind of treatment. We discussed the risk benefits and alternatives of starting medication and he reported not feeling like he needed any medication when he is sober. He was also resistant to any inpatient or sober living services that were going to be intense. We agreed that if he was safe and well signs of credible lethality towards himself or others we would consider discharge in the morning. We reviewed his 12/09/2019 inpatient eval with this procedure writer as he denies substantive changes since then. Per his 12/09/2019 [facility] inpatient eval: History of Present Illness Bob Yin is a 39 year old male who presented to the emergency room with first responders secondary to strange behavior at his house which involved him apparently being by window pouring milk on himself and some talk about jumping out the window. He was uncooperative in the emergency room and had to have a when necessary injection. He was admitted to the neuropsychiatric unit for definitive treatment of these issues. Today he presents reporting that he wants to go home and giving no clear indication of what had gone on at that window. He was in denial that he had any problems but then later said that sometimes his mind plays tricks on him. He Focusing on the discharging him and straying from the episode that occurred. He endorsed the possibility of benefiting from Haldol at night. Given that it helped him sleep which he said is a problem. We discussed Abilify and Haldol and the risks, benefits and alternatives to those medications and he understood and agreed to proceed with dose of Haldol at night. He denied any clear past issues like this one. Additionally of note, he had coughed incessantly during the interview spitting things up a couple of times. There had been a possible contact case in his community of Covid?19 so hospitalist consult was initiated to make sure that he was not a carrier as he was not displaying any fever or reporting other signs. Psychiatric history: Denied. Substance abuse history: He denies any significant cigarette, alcohol, marijuana or any other illicit drug use. Denies any history of drug rehabilitation or DUIs. Family history: He endorsed that his mom's side of the family might have some mental health issues. Endorsed that possibly his father side of the family had some addiction issues. He denied any suicide attempts or completions. Developmental history: He denied any issues with his mom's or delivery of him. He learned to walk and talk and met his developmental milestones on time. He reported that he did not have speech therapy, learning support, emotional support or special education classes, but reported that due to the war in his country he was not really able to go to school. He then reported that when he came to [place], he ended up being put in the ninth grade. Developmental history: He reports his mother father were together when he was born. He reports that possibly his mother had Rh factor or something of that nature cause due to mismatch of his blood type in her blood type she was not able to have any other children for the most part until he had his sister Omayra who is his only sibling. He denies any emotional physical or sexual abuse in his childhood which she reported was rough secondary to the war but he does report some war atrocities but did not seem to want to talk about nightmares or anything like that. He went to the 11th grade in high school and dropped out. He did not get his GED but it appears that may have had more to do with language barrier than intelligence. He endorses being a heterosexual and is been to the same woman for almost 23 years. It is only marriage and he has 10 children 6 boys and 4 girls with one of his children the oldest boy having moved out and got the rest reportedly live in the home. He has never been in the , he endorses being a Bahai. 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 He lives in a house with his and 9 children. Legal history: He endorses being in snf multiple times along its time being 120 day shock sentence. Medical history: Denied. Hospital Course Hospital Course Bob presented to the emergency department in active methamphetamine intoxication, speaking wildly in Malagasy and broken Liberian, frantic, sweating and ultimately needing restrained in getting IM medication. He was admitted to the neuropsychiatric unit for definitive treatment of those issues. He very quickly acclimated to the individual, group and milieu therapies provided. He was not interested in any inpatient treatment and was very ambivalent about outpatient treatment and medication. He had a fairly marked improvement and was able to contract for safety prior to discharge. During the hospitalization, patient had routine laboratory studies which were within normal limits except for few outliers. Additionally he had a general medical evaluation which was also within normal limits and revealed no new acute processes. Discharge Summary: At the time of discharge, patient was absent lethality or psychosis. Mood and anxiety were well managed. Patient endorsed a plan to avoid all drugs of abuse and follow-up with the aftercare recommendations of the treatment team. Patient was evaluated and deemed to be absent credible lethality, and had achieved the maximum benefit from an inpatient hospitalization, so was discharged. Involuntary Hold Information 96 Hour Hold: 96 Hour Involuntary Admission: Yes 96 Hour Hold Ending Date: 05/08/20 96 Hour Hold Ending Time: 12:15 Mental Status Exam MSE Comments: This is an overweight white male with hospital scrubs on with appropriate grooming and eye contact. No abnormal movements. Cooperative with exam in no acute. Speech was normal rate and volume with a strong Malagasy accent. Mood described as much better, affect congruent. Thought process organized. Thought content: Patient denied any suicidal or homicidal ideation, delusions reported or noted, he denied any auditory or visual hallucinations. Attention and concentration were intact and memory appeared reliable but none were formally tested. He is alert and oriented x3. Insight and judgment were fair impulse control is impaired. Discharge Data Data Completed and Pending: Completed Studies During Hospitalization Category Date Time Status XR chest 1V wade ble [id number] Stat Exams 04/30/20 12:28 Completed Vitals: Last Vital Signs Temp 97.6 F 05/02/20 06:57 Pulse 84 05/02/20 06:57 Resp 18 05/02/20 06:57 BP 98/55 05/02/20 06:57 Pulse Ox 97 05/02/20 06:57 Discharge Plan Discharge Patient Disposition: Home Condition: Stable Prescriptions: Continued Unable to Assess RF: 0 Discharge Orders: Discharge Order (Routine); Ordered 05/02/20 Ordered By: Jason Bautista Referrals: [facility] [Outside] (If you change your mind and would like to begin outpatient services please call for an intake assessment to be scheduled.) [facility] [Outside] (Resource for drug treatment-both inpatient and outpatient treatment options.) Discharge Diet: Regular Discharge Activity: Resume usual activity Patient Instructions: Anxiety (DC) Discharge Attestations NPU Time Spent in Discharge Care*: less than 30 min Specific Discharge Activities: Specific discharge activities: educating patient, discussing with manager of case management/social workers/dc planners, documenting/other paperwork and evaluating patient/reviewing data Coding Level of Care Code Acute Italian Teacher for Chg Fwd Diagnoses Depression F32.9 Depression Type: unspecified Withdrawal from methamphetamine F15.23 Methamphetamine intoxication F15.929 Methamphetamine abuse F15.10 GERD (gastroesophageal reflux disease) K21.9
[2020-05-02 09:44] VITALS: BP 98/55; PULSE 84; RESP 18; TEMP 36.4; O2SAT 97
== END 2020-05-02 11:17 | disposition home or self-care (01) | DRG 881 ==
LOC: ER 12:42 → NP 14:06
PROVIDERS: Admitting Provider Psychiatry & Neurology Psychiatry; Emergency Provider Emergency Medicine; Visit Provider Psychiatry & Neurology Psychiatry
DX: F32.9 Major depressive disorder, single episode, unspecified (principal); F15.23 Other stimulant dependence with withdrawal; K21.9 Gastro-esophageal reflux disease without esophagitis
CPT/HCPCS: 12345; 71045; 80053; 80306; 80307; 81001; 82550; 83735; 84443; 85025; 85610; 87426; 87804; 93005; 96372; 96375; 99282; 99291; J1630; J2060; J3480; J7030

== ENCOUNTER → 2020-10-02 11:01 | Outpatient (BNVA) | payer SELFPAY | PROVIDERS: Visit Provider Nurse Practitioner Family | DX: J02.9 Acute pharyngitis, unspecified (principal); R05 Cough; Z20.822 Contact with and (suspected) exposure to COVID-19 | CPT/HCPCS: 87635 ==